=== PATIENT | male | born 1990 | race Caucasian/White ===

== ENCOUNTER 2022-05-11 10:34 | Emergency (ER) | payer OTHER ==
[2022-05-11 10:43] VITALS: BP 153/63; PULSE 78; RESP 20; TEMP 97.8; BMI 29.2
[2022-05-11] MEDS ORDERED: ONDANSETRON 4 MG/2 ML VIAL IVPUSH ONE (11:42)
[2022-05-11] MEDS ORDERED: SODIUM CHLORIDE 0.9% 500 ML INFUS.BAG IV ONE (11:42)
[2022-05-11 13:46] LABS: BASO % 0.9 % (0-2.0); EOS % 2.5 % (0-4.5); HEMATOCRIT 44.4 % (35.4-49); HEMOGLOBIN 15.4 GM/dL (11.7-16.9); LYMPH % 16.4 % (8-40); MCH 32.3 pg (25.7-33.7); MCHC 34.6 g/dl (32.0-35.9); MEAN CELL VOLUME 93.4 fl (80-96); MONO % 10.6 % (3.8-10.2); NEUT % 69.6 % (42.8-82.8); PLATELET COUNT 355 10^3/uL (134-434); RBC 4.76 M/mm3 (4.00-5.60); RDW 12.7 % (11.9-15.9); WHITE BLOOD COUNT 7.3 K/mm3 (4.0-10.0)
[2022-05-11 14:07] LABS: BLOOD UREA NITROGEN 13.5 mg/dL (7-18); CALCIUM 10.1 mg/dL (8.5-10.1)
[2022-05-11 14:08] LABS: ALBUMIN 4.3 g/dl (3.4-5.0)
[2022-05-11 14:11] LABS: CREATININE 0.8 mg/dL (0.55-1.3)
[2022-05-11 14:12] LABS: TOT PROT 8.6 g/dl (6.4-8.2)
[2022-05-11] MEDS ORDERED: morphine CARPU-JECT 2 MG/1 ML DISP.SYRIN IVPUSH ONE (14:41)
[2022-05-11] MEDS ORDERED: ACETAMINOPHEN 1000 MG/100 ML BAG IVPB ONE (15:15)
[2022-05-11] MEDS ORDERED: ONDANSETRON 4 MG/2 ML VIAL ONE (15:38)
[2022-05-11] MEDS ORDERED: ACETAMINOPHEN INJECTION 100 ML IVPB ONE (15:38)
== END 2022-05-11 20:01 | disposition home or self-care (01) ==
LOC: JER 10:34
PROC: 3E033NZ Introduction of Analgesics, Hypnotics, Sedatives into Peripheral Vein, Percutaneous Approach (ICD-10-PCS; principal; 2022-05-11)
PROC: 3E033NZ Introduction of Analgesics, Hypnotics, Sedatives into Peripheral Vein, Percutaneous Approach (ICD-10-PCS; 2022-05-11)
PROC: 3E033GC Introduction of Other Therapeutic Substance into Peripheral Vein, Percutaneous Approach (ICD-10-PCS; 2022-05-11)
DX: K76.0 Fatty (change of) liver, not elsewhere classified (principal); R10.12 Left upper quadrant pain
CPT/HCPCS: 36415; 76705-TC; 80053; 83690; 85025; 99284-25